=== PATIENT | male | born 1995 | race Hispanic/Latino ===

== ENCOUNTER 2018-06-13 16:33 | Emergency (ER) | payer SELFPAY ==
[2018-06-13 16:51] LABS: BASOPHILS % (AUTO) 0.7 % (0.0-5.0); EOSINOPHILS % (AUTO) 2.8 % (0.0-8.0); HEMATOCRIT 44.3 % (42-54); LYMPHOCYTES % (AUTO) 26.2 % (21.0-51.0); MEAN CORPUSCULAR HEMOGLOBIN 31.2 pg (27.0-33.0); MEAN CORPUSCULAR HGB CONC 33.4 g/dL (32.0-36.0); MEAN CORPUSCULAR VOLUME 93.5 fL (79-99); MONOCYTES % (AUTO) 9.9 % (3.0-13.0); NEUTROPHILS % (AUTO) 60.4 % (40.0-77.0); PLATELET COUNT (AUTO) 226 K/uL (130-400); RED BLOOD CELL COUNT(AUTO) 4.74 MIL/uL (4.50-6.20); RED CELL DISTRIBUTION WIDTH 13.6 % (11.0-15.5); WHITE BLOOD COUNT (AUTO) 6.6 K/uL (4.8-10.8)
[2018-06-13 17:03] LABS: POTASSIUM 4.2 mmol/L (3.5-5.1)
[2018-06-13 17:08] LABS: ALBUMIN 3.3 g/dL (3.5-5.0); BILIRUBIN,TOTAL 0.7 mg/dL (0.2-1.0); TOTAL PROTEIN, SERUM 6.2 g/dL (6.0-8.3)
== END 2018-06-13 17:24 | disposition home or self-care (01) ==
LOC: EDH 16:33
DX: R10.31 Right lower quadrant pain (principal); K59.00 Constipation, unspecified; F31.9 Bipolar disorder, unspecified; Z72.0 Tobacco use
CPT/HCPCS: 36415; 80053; 83690; 85025

== ENCOUNTER 2018-12-08 01:36 | Emergency (ER) | payer OTHER ==
[2018-12-08] MEDS ORDERED: ALBUTEROL SULFATE 0.083% 2.5 MG/3 ML INH IH ONE ×2 (01:49→03:15)
[2018-12-08] MEDS ORDERED: DiphenhydrAMINE HCL 50 MG/ML VIAL ONE (01:54)
[2018-12-08] MEDS ORDERED: FAMOTIDINE/PF 20 MG/2 ML VIAL IV ONE (01:54)
[2018-12-08] MEDS ORDERED: METHYLPREDNISOLONE SOD SUCC 125MG/2ML VIAL ONE (01:54)
[2018-12-08] MEDS ORDERED: RACEPINEPHRINE HCL 2.25% 0.5 ML NEB SOLN ONE (04:05)
[2018-12-08] MEDS ORDERED: DEXAMETHASONE SOD PHOSPHATE 10MG/ML 1ML VIAL ONE (05:34)
== END 2018-12-08 06:11 | disposition home or self-care (01) ==
LOC: EDH 01:36
DX: T78.1XXA Other adverse food reactions, not elsewhere classified, initial encounter (principal); T78.3XXA Angioneurotic edema, initial encounter; F41.9 Anxiety disorder, unspecified; F31.9 Bipolar disorder, unspecified; Z72.0 Tobacco use; X58.XXXA Exposure to other specified factors, initial encounter
CPT/HCPCS: 94640 ×3; 96374; 96375; 99285; J1100; J1200; J2930; J3490

== ENCOUNTER 2023-09-22 12:04 | Emergency (ER) | payer OTHER ==
[~2023-09-22] VITALS: Ht 170.2 cm; Wt 97.5 kg
[2023-09-22 12:40] VITALS: BP 139/101; PULSE 94; RESP 20
[2023-09-22 13:02] LABS: APPEARANCE,URINE CLEAR (CLEAR); BILIRUBIN,URINE NEGATIVE (NEGATIVE); COLOR,URINE LIGHT-YELLOW (YELLOW); GLUCOSE, URINE (UA) NEGATIVE (NEGATIVE); KETONES,URINE NEGATIVE (NEGATIVE); LEUKOCYTE ESTERASE ,URINE NEGATIVE Leu/uL (NEGATIVE); NITRATE,URINE NEGATIVE (NEGATIVE); OCCULT BLOOD,URINE NEGATIVE (NEGATIVE); PROTEIN,URINE NEGATIVE (NEGATIVE); UROBILINOGEN,URINE 0.2 mg/dL (0.2-1.0)
[2023-09-22 13:03] LABS: ADD UA MICROSCOPIC NO
[2023-09-22 13:35] LABS: BASOPHILS # (AUTO) 0.04 K/uL (0.00-0.20); BASOPHILS % (AUTO) 0.5 % (0.0-5.0); EOSINOPHILS # (AUTO) 0.08 K/uL (0.00-0.70); HEMATOCRIT 41.5 % (42-54); IMMATURE GRANULOCYTE ABSOLUTE 0.02 K/uL (0-1); LYMPHOCYTES # (AUTO) 1.5 K/uL (1.0-4.8); LYMPHOCYTES % (AUTO) 18.4 % (21.0-51.0); MEAN CORPUSCULAR VOLUME 91.2 fL (79-99); MONOCYTES # (AUTO) 0.7 K/uL (0.1-1.0); MONOCYTES % (AUTO) 9.1 % (3.0-13.0); NEUTROPHILS # (AUTO) 5.6 K/uL (1.8-7.7); NEUTROPHILS % (AUTO) 70.7 % (40.0-77.0); PLATELET COUNT (AUTO) 338 K/uL (130-400); RED BLOOD CELL COUNT(AUTO) 4.55 MIL/uL (4.50-6.20); RED CELL DISTRIBUTION WIDTH 12.7 % (11.0-15.5); WHITE BLOOD COUNT (AUTO) 7.9 K/uL (4.8-10.8)
[2023-09-22 13:49] LABS: ALBUMIN 3.9 g/dL (3.5-5.0); BILIRUBIN,TOTAL 0.5 mg/dL (0.2-1.0); POTASSIUM 4.2 mmol/L (3.5-5.1); TOTAL PROTEIN, SERUM 7.9 g/dL (6.0-8.3)
[2023-09-22] MEDS ORDERED: METH4TAB3 PO (15:02)
[2023-09-22] MEDS ORDERED: SOLU-MEDROL 125MG VIAL IM ONE (15:30)
== END 2023-09-22 15:50 | disposition home or self-care (01) ==
LOC: EDH 12:04
DX: T78.49XA Other allergy, initial encounter (principal); L50.0 Allergic urticaria; R30.0 Dysuria; X58.XXXA Exposure to other specified factors, initial encounter
CPT/HCPCS: 99283; 80053; 85025; 81003; 36415; 96372; J2930

== ENCOUNTER 2023-10-24 09:04 | Emergency (ER) | payer OTHER ==
[~2023-10-24] VITALS: Ht 170.2 cm; Wt 93.4 kg
[~2023-10-24 09:04] MED LIST: METH4TAB3 PO
[2023-10-24] MEDS ORDERED: IBUP-2070 PO (10:39)
[2023-10-24] MEDS: IBUPROFEN 600 MG TABLET ONE (11:11)
[2023-10-24] MEDS: IBUPROFEN 400 MG TABLET PO ONE (11:11)
[2023-10-24 11:25] VITALS: BP 128/72; PULSE 72; RESP 18; O2SAT 100
== END 2023-10-24 11:25 | disposition home or self-care (01) ==
LOC: EDH 09:04
DX: S86.811A Strain of other muscle(s) and tendon(s) at lower leg level, right leg, initial encounter (principal); X58.XXXA Exposure to other specified factors, initial encounter; Y93.89 Activity, other specified; Y92.89 Other specified places as the place of occurrence of the external cause; Y99.8 Other external cause status
CPT/HCPCS: 73590; 73600

== ENCOUNTER 2023-11-23 19:49 | Emergency (ER) | payer OTHER ==
[~2023-11-23] VITALS: Ht 170.2 cm; Wt 95.3 kg
[~2023-11-23 19:49] MED LIST changes: +IBUP-2070 PO
[2023-11-23] MEDS ORDERED: PENICILLIN G BENZATHINE LA 1.2 MILUNITS/2 ML SYG IM ONE (20:30)
[2023-11-23 20:35] LABS: BASOPHILS # (AUTO) 0.04 K/uL (0.00-0.20); BASOPHILS % (AUTO) 0.5 % (0.0-5.0); EOSINOPHILS # (AUTO) 0.18 K/uL (0.00-0.70); EOSINOPHILS % (AUTO) 2.2 % (0.0-8.0); HEMATOCRIT 40.4 % (42-54); IMMATURE GRANULOCYTE ABSOLUTE 0.03 K/uL (0-1); LYMPHOCYTES # (AUTO) 1.3 K/uL (1.0-4.8); LYMPHOCYTES % (AUTO) 15.6 % (21.0-51.0); MEAN CORPUSCULAR HEMOGLOBIN 30.4 pg (27.0-33.0); MEAN CORPUSCULAR HGB CONC 33.4 g/dL (32.0-36.0); MONOCYTES # (AUTO) 0.8 K/uL (0.1-1.0); MONOCYTES % (AUTO) 9.9 % (3.0-13.0); NEUTROPHILS # (AUTO) 5.9 K/uL (1.8-7.7); NEUTROPHILS % (AUTO) 71.4 % (40.0-77.0); PLATELET COUNT (AUTO) 362 K/uL (130-400); RED BLOOD CELL COUNT(AUTO) 4.44 MIL/uL (4.50-6.20); RED CELL DISTRIBUTION WIDTH 13.5 % (11.0-15.5); WHITE BLOOD COUNT (AUTO) 8.2 K/uL (4.8-10.8)
[2023-11-23] MEDS: CEFTRIAXONE 2GM VIAL IVPB ONE (20:40)
[2023-11-23] MEDS: 0.9%NACL 1000ML 1,000 ML IV ONE (20:40)
[2023-11-23 20:45] LABS: CREATININE 0.9 mg/dL (0.5-1.5); POTASSIUM 3.8 mmol/L (3.5-5.1)
[2023-11-23 20:49] LABS: APPEARANCE,URINE CLEAR (CLEAR); BILIRUBIN,URINE NEGATIVE (NEGATIVE); COLOR,URINE YELLOW (YELLOW); GLUCOSE, URINE (UA) NEGATIVE (NEGATIVE); KETONES,URINE 5 mg/dL (NEGATIVE); LEUKOCYTE ESTERASE ,URINE NEGATIVE Leu/uL (NEGATIVE); NITRATE,URINE NEGATIVE (NEGATIVE); OCCULT BLOOD,URINE SMALL (NEGATIVE); PH,URINE 5.5 (5.0-8.0); PROTEIN,URINE 10 mg/dL (NEGATIVE); UROBILINOGEN,URINE 0.2 mg/dL (0.2-1.0)
[2023-11-23 20:53] LABS: ADD UA MICROSCOPIC YES
[2023-11-23 21:03] LABS: RAPID GROUP A STREP negative (NEGATIVE)
[2023-11-23 21:07] LABS: INFLUENZA TYPE A Negative For Type A (NEGATIVE); INFLUENZA TYPE B Negative For Type B (NEGATIVE); MUCUS,URINE RARE LPF (None Seen); RSV negative (NEGATIVE); WBC,URINE 0-1 /HPF (0-1)
[2023-11-23 21:08] LABS: HIV 1&2 ANTIBODY Non-Reactive (Negative)
[2023-11-23 21:08] LABS: SARS-CoV-2, RNA, NAAT NEGATIVE SARS CoV-2 (NEGATIVE)
[2023-11-23 21:09] LABS: HIV-1 p24 Antigen Non-Reactive (Negative)
[2023-11-23] MEDS ORDERED: DOXY100T2 PO (21:37)
[2023-11-23 21:49] LABS: RAPID PLASMA REAGIN REACTIVE (NONREACTIVE)
[2023-11-23 22:10] LABS: RAPID PLASMA REAGIN TITER REACTIVE >1:16 (NONREACTIVE)
[2023-11-23 22:12] VITALS: BP 118/60; PULSE 67; RESP 18; O2SAT 98
== END 2023-11-23 22:28 | disposition home or self-care (01) ==
LOC: EDH 19:49
DX: A64 Unspecified sexually transmitted disease (principal); M25.551 Pain in right hip; Z20.822 Contact with and (suspected) exposure to COVID-19; Z72.9 Problem related to lifestyle, unspecified; Z79.899 Other long term (current) drug therapy
CPT/HCPCS: 99285; 74176; 96365; 71046; 87635; 86780; 86592; 80048; 85025; 87040 ×2; 87880; 87804 ×2; 87797; 86701; 87390; 87486; 81001; 36415; 87420; 87807; J7030; J0696; J0561

== ENCOUNTER 2025-05-28 10:06 | Emergency (ER) | payer SELFPAY ==
[~2025-05-28] VITALS: Ht 170.2 cm; Wt 95.3 kg
[~2025-05-28 10:06] MED LIST changes: +DOXY100T2 PO; +IBUP-1492 PO; -IBUP-2070 PO
--- NOTE | 2025-05-28 11:01 | NUR ---
PT RIGHT FOOT IS IN BETADINE SOAK.
[2025-05-28] MEDS ORDERED: CIPR-278 PO (11:08)
--- NOTE | 2025-05-28 11:08 | HMCIMG ---
FOOT COMP 3+VWS RT REASON: r/o fb TECHNIQUE: 3 views were obtained. FINDINGS: There is no evidence of fracture or dislocation. There is no joint effusion. The soft tissues appear unremarkable. There is no evidence of a radiopaque foreign body. No osseous articular or soft tissue pathology. IMPRESSION: No acute findings. No radiopaque foreign body
--- NOTE | 2025-05-28 11:09 | ERN ---
General Chief Complaint: FOOT INJURY/PAIN Stated Complaint: STEPPED ON NAIL RT FOOT Time Seen by MD: 10:10 Time Seen by Midlevel: 10:10 Source: patient History of Present Illness Initial Comments The patient is a 29-year-old male with no significant past medical history presenting to the emergency department for evaluation of a puncture wound. Patient reports stepping on a nail yesterday afternoon while wearing his shoes. Today he reports increased pain to the area. Patient is not up-to-date with tetanus vaccination. Allergies: Coded Allergies: No Known Drug Allergies (Unverified Allergy, Unknown, 09/22/23) Home Meds Active Scripts Ciprofloxacin HCl (Cipro) 500 Mg Tablet, 1 TAB PO BID for 10 Days, #20 TAB 0 Refills Prov:PADMINI FRANCO 05/28/25 Doxycycline Hyclate (Doxycycline Hyclate) 100 Mg Tablet, 100 MG PO BID for 14 Days, #28 TAB 0 Refills Prov:HAI GRANT Sr., MD 11/23/23 Ibuprofen (Ibuprofen) 600 Mg Tablet, 600 MG PO Q6H PRN for PAIN, #30 TAB Prov:KANU WERNER 10/24/23 Methylprednisolone (Medrol) 4 Mg Tab.ds.pk, 4 MG PO AD for 6 Days, #1 PACK Prov:LAUREN SANCHEZ MD 09/22/23 Past Medical History Past Medical History: No Pertinent History Past Surgical History: None Social History Social History: Negative ROS Dictation CONSTITUTIONAL: Negative except for HPI HEAD/FACE: Negative except for HPI EENT: Negative except for HPI RESPIRATORY: Negative except for HPI GASTROINTESTINAL/ABDOMINAL: Negative except for HPI GENITOURINARY: Negative except for HPI MUSCULOSKELETAL: Negative except for HPI INTEGUMENTARY: Negative except for HPI NEUROLOGICAL/PSYCH: Negative except for HPI HEMATOLOGIC/LYMPHATIC: Negative except for HPI All Systems Negative, Except as noted above. 13 point review of systems assessed and all negative except for above. Physical Exam Physical Exam Dictation PHYSICAL EXAM: GENERAL: alert,, awake oriented x 3 HEENT: EOMI, Sclera non icteric, moist mucosa NECK: Supple, no JVD, trachea midline LUNGS: Clear breath sounds bilaterally. No wheezes HEART: Regular rate and rhythm. Normal S1 and S2, without murmurs ABD: Abdomen soft, nontender. Bowel sounds present EXT: There is a small puncture wound measuring less than 1 cm to the plantar aspect of the right but over the lateral region, no surrounding erythema or induration is noted area is slightly tender to touch NEURO: Alert and oriented to person, follows commands MDM MDM: Patient presents with a puncture wounds foot sustained yesterday after stepping on a nail through the sole shoe. On examination the puncture site is slightly tender to palpation but without erythema, induration, fluctuance, or evidence of abscess formation. No systemic symptoms noted. Given the mechanism of injury through the shoe there is increased. His for Pseudomonas infection. Patient received a tetanus vaccination in the emergency department. X-ray imaging was obtained, which did not reveal any retained foreign body or acute osseous injury. Considering the absence cellulitis, abscess, or systemic illness the patient is stable for outpatient management. The decision was made to initiate oral ciprof loxacin for Pseudomonas coverage. Patient was advised on strict return precautions in the importance close of follow up Differential diagnosis: There are no social concerns with this patient. Prescription drug management Prescriptions will include: Medical management and examination interpretation discussions were had by me with other qualified healthcare professionals as indicated for the patient's care. ED Course Orders Procedure Category Date Status Time Tetanus,Diphtheria PHA 05/28/25 Complete Tox [Adult] (Diphther 10:30 Foot Comp 3+Vws Rt RAD 05/28/25 Resulted 10:19 *Nursing CPOE 05/28/25 Transmitted Communication: 10:19 Current Medications Medications (Trade) Dose Ordered Sig/Stew Route PRN Reason Start Time Stop Time Status Last Admin Dose Admin Tetanus/ Diphtheria Toxoids Adsorbed (DiphthERIA-teTANUS TOXOID [ADULT]/ DECAVAC) 0.5 ml ONCE ONCE IM 05/28/25 10:30 05/28/25 10:31 DC 05/28/25 10:31 Vital Signs Date Time Temp Pulse Resp B/P (MAP) Pulse Ox O2 Delivery O2 Flow Rate FiO2 05/28/25 10:24 98.1 57 20 134/81 99 Room Air* 0 21 05/28/25 10:09 98.1 57 20 134/81 99 Room Air DX & DISP Disposition: Discharge Departure Impression: Primary Impression: Puncture wound Condition: Stable Scripts Ciprofloxacin HCl (Cipro) 500 Mg Tablet 1 TAB PO BID for 10 Days, #20 TAB 0 Refills Prov: PADMINI FRANCO 05/28/25 Additional Instructions: You were seen today for a puncture wound to your foot. Your tetanus vaccination was updated. An x-ray was done and showed no foreign body or fracture. We are prescribing you an antibiotic called ciprofloxacin to help prevent infection, especially from bacteria that can affect puncture wounds refused. Take it exactly as prescribed and finish the entire course, even if you start to feel better. Keep the wound area clean and dry. You may gently wash with mild soap and water once daily, then cover with a clean bandage. You may use [id number] pain medication like Tylenol or ibuprofen as needed. Return to the emergency department immediately if you notice an increase in pain, swelling, redness, or drainage from the wound. Follow up with your primary care doctor in 2-3 days for repeat evaluation. Referrals: SELF,REFERRAL (PCP) Time of Disposition: 11:06 I have reviewed the case, and I agree with, Diagnosis and Plan I performed the substantive portion of the visit. I have reviewed and personally made and approve the management plan that is documented in the note by myself or the CRAIG. I acknowledge for responsibility for the patient's management plan. PADMINI FRANCO May 28, 2025 11:09
[2025-05-28 11:25] VITALS: BP 114/73; PULSE 58; RESP 20; TEMP 98.1; O2SAT 97
== END 2025-05-28 11:44 | disposition home or self-care (01) ==
LOC: EDH 10:06
DX: S91.331A Puncture wound without foreign body, right foot, initial encounter (principal); Z79.899 Other long term (current) drug therapy; W45.0XXA Nail entering through skin, initial encounter; Y93.89 Activity, other specified; Y92.89 Other specified places as the place of occurrence of the external cause; Y99.8 Other external cause status
CPT/HCPCS: 73630; 90471; 90714; 99283

== ENCOUNTER 2025-08-16 21:42 | Emergency (ER) | payer OTHER ==
[~2025-08-16] VITALS: Ht 152.4 cm; Wt 93.9 kg
[~2025-08-16 21:42] MED LIST changes: +CIPR-278 PO
[2025-08-16 21:43] VITALS: BP 156/89; PULSE 63; RESP 20; TEMP 98
[2025-08-16] MEDS ORDERED: IBUP-2077 PO (22:54)
[2025-08-16] MEDS ORDERED: AMOX1TAB16 PO (22:54)
--- NOTE | 2025-08-16 22:55 | ERN ---
ED Note History of Present Illness Stated Complaint: C/O TOOTHACHE X 5 DAYS Chief Complaint: Tooth Ache/Pain Time Seen by MD: 21:46 Time Seen by Midlevel: 21:46 Dictation: The patient is a 30-year-old male with no past medical history who presents to [facility] emergency department with right lower tooth pain and fracture. Patient reports he fracture his tooth four days ago. Patient reports he has been taking amoxicillin from [place]. Denies any fevers. Allergies: Coded Allergies: No Known Drug Allergies (Unverified Allergy, Unknown, 09/22/23) Home Meds Active Scripts Ciprofloxacin HCl (Cipro) 500 Mg Tablet, 1 TAB PO BID for 10 Days, #20 TAB 0 Refills Prov:PADMINI FRANCO 05/28/25 Doxycycline Hyclate (Doxycycline Hyclate) 100 Mg Tablet, 100 MG PO BID for 14 Days, #28 TAB 0 Refills Prov:HAI GRANT Sr., MD 11/23/23 Ibuprofen (Ibuprofen) 600 Mg Tablet, 600 MG PO Q6H PRN for PAIN, #30 TAB Prov:KANU WERNER [employer] 10/24/23 Methylprednisolone (Medrol) 4 Mg Tab.ds.pk, 4 MG PO AD for 6 Days, #1 PACK Prov:LAUREN SANCHEZ MD 09/22/23 Past Medical History Past Medical History: No Pertinent History Surgical History: None Social History: Negative RN Note Reviewed/Agreed w/PFSH: Yes Review of System Dictation Constitutional: Negative for fever,chills, and weight loss Eyes: Negative for injury, pain,redness, and discharge ENT: Negative for injury,pain or swelling positive for toothache Cardiovascular: Negative for chest pain, palpitations, and edema Respiratory: Negative for shortness of breath, cough, and wheezing, Abdomen/GI: Negative for abdominal pain, nausea, vomiting, diarrhea, and constipation Back: Negative for injury and pain : Negative for injury, bleeding and discharge MS/Extremity: Negative for injury and deformity Skin: Negative for rash, and discoloration Neuro: Negative for headache, weakness, numbness, tingling, and seizure Psych: Negative for suicide ideation, homicidal ideation, and hallucinations Initial Vital Sign VS Vital Signs Date Time Temp Pulse Resp B/P (MAP) Pulse Ox O2 Delivery O2 Flow Rate FiO2 08/16/25 21:43 98.1 63 20 156/89 97 Room Air Physical Exam Dictation Vital Signs reviewed General Appearance: Alert, oriented x 3, no acute distress, well developed, nourished. Head and Face: non-traumatic. Eyes: PERRL, pink conjunctivas, eyelid no trauma, anterior chamber with arcus senilis. Ears: Pinnas intact and no signs of trauma or erythema ear canals clear and no discharge TM no erythema Nose: No discharge, no bleeding. Oropharynx: Mouth normal, tongue pink. Fracture 2 31st tooth, no drainage, tooth decay, no swelling to face or neck. pharynx clear,no erythema, tonsils no exudates, no abscesses noted, mucous membrane moist Neck: Supple, non-tender, no thyromegaly, no masses, no JVD, no bruits Breast:Deferred Chest:No tenderness, no crepitus, no paradoxical movement, no retractions Lungs:Clear, well-ventilated, symmetric, no rales, no wheezing, no rhonchi, no stridor, good breath sounds bilaterally Heart: Regular rate, regular rhythm, no murmur, no gallops Vascular: no peripheral edema, Abdomen: Soft, positive bowel sounds, nondistended, no guarding, nontender, no rebound, no masses no hepatomegaly, no splenomegaly, no Corea's sign, no hernias. Rectal: Deferred Genital: Deferred Neurological: Normal speech, motor function intact, sensory function intact Musculoskeletal: Neck nontender, full range of motion, back nontender, full range of motion, Extremities: nontender, full range of motion Skin: Color pink, dry, no turgor, no rash, no lacerations, no abrasions, no contusions. Lymphatic: Deferred Results (Laboratory/Radiology) Labs Reviewed?: Yes ED Course ED Course Orders Procedure Category Date Status Time Ketorolac 60mg/2ml PHA 08/16/25 Complete (Toradol 60mg/2ml) 22:30 Current Medications Medications (Trade) Dose Ordered Sig/Stew Route PRN Reason Start Time Stop Time Status Last Admin Dose Admin Ketorolac Tromethamine (toRADol 60MG/ 2ML) 60 mg ONCE ONCE IM 08/16/25 22:30 08/16/25 22:31 DC 08/16/25 22:18 Vital Signs Date Time Temp Pulse Resp B/P (MAP) Pulse Ox O2 Delivery O2 Flow Rate FiO2 08/16/25 21:43 98.1 63 20 156/89 97 Room Air Medical Decision Making MDM The patient is a 30-year-old male with no past medical history who presents to the emergency department with right lower tooth pain and fracture. Patient reports he fracture his tooth four days ago. Patient reports he has been taking amoxicillin from [place]. Denies any fevers. Patient with a fractured 31 tooth, no significant swelling to face or cheek. Patient was treated for pain and instructed he needs to follow up with his dentist for treatment. Patient otherwise in no acute distress, nontoxic appearance, stable vital signs. We will change patient amoxicillin to Augmentin. Differential diagnosis: Tooth decay, tooth fracture, toothache Need for hospitalization: Patient does not meet criteria for hospitalization. There are no social concerns with this patient. DX & DISP Disposition: Discharge Departure Impression: Primary Impression: Toothache Additional Impression: Tooth decay Condition: Stable Scripts Amoxicillin/Potassium Clav (Amox Tr-K Clv 875-125 mg Tab) 875 Mg-125 Mg Tablet 1 TAB PO BID for 7 Days, #14 TAB 0 Refills Prov: MARY AMBROSIO [employer] 08/16/25 Ibuprofen (Ibuprofen 800 mg Tab) 800 Mg Tab 800 MG PO Q8H PRN for PAIN, #30 TAB 0 Refills Prov: MARY AMBROSIO [employer] 08/16/25 Additional Instructions: It is very important that you follow up with the your dentist for treatment of your tooth. Take your medications as prescribed. If anything worsens please return to ER. FOLLOW-UP WITH PRIMARY CARE PROVIDER IN 1 TO 2 DAYS. TAKE MEDICATIONS DIRECTED HERE IN THE EMERGENCY ROOM. OKAY TO CONTINUE HOME MEDICATIONS UNLESS OTHERWISE DISCUSSED DURING YOUR VISIT IN THE EMERGENCY ROOM TODAY. RETURN TO YOUR NEAREST EMERGENCY ROOM IF SYMPTOMS WORSEN OR IF THERE IS NO IMPROVEMENT. CALL 911 IF YOU NEED IMMEDIATE ASSISTANCE. TAKE TYLENOL [id number] NEEDED AND IF NO CONTRAINDICATIONS ARE PRESENT. INCREASE ORAL HYDRATION. A WOUND CULTURE OR URINE CULTURE WAS ORDERED HERE IN THE EMERGENCY ROOM DEPARTMENT PLEASE FOLLOW-UP WITH PRIMARY CARE PROVIDER AND ADVISE THEM TO GET REPEAT PORTS FROM OUR FACILITY. IF YOU HAD ANY ONDINA WRAP/SPLINTS THAT WERE APPLIED HERE, PLEASE DO NOT REMOVE THEM UNTIL YOU SEE YOUR PRIMARY CARE OR SPECIALTY. Referrals: SELF,REFERRAL (PCP) Time of Disposition: 22:52 I have reviewed the case, and I agree with, Diagnosis and Plan MARY AMBROSIO [facility] Aug 16, 2025 22:55
== END 2025-08-16 23:06 | disposition home or self-care (01) ==
LOC: EDH 21:42
DX: K02.9 Dental caries, unspecified (principal); Z79.899 Other long term (current) drug therapy
CPT/HCPCS: 99283; 96372; J1885